=== PATIENT | male | born 2005 | race Caucasian/White ===

== ENCOUNTER 2024-08-26 01:33 | Emergency (ER) | payer OTHER ==
[~2024-08-26] VITALS: Ht 180.3 cm; Wt 76.5 kg
[2024-08-26 03:13] LABS: BLOOD UREA NITROGEN 14 MG/DL (9-23); CALCIUM LEVEL 8.7 MG/DL (8.5-10.1); CARBON DIOXIDE LEVEL 27 MMOL/L (20-31); CHLORIDE LEVEL 105 MMOL/L (98-107); CREATININE FOR GFR 0.89 MG/DL (0.70-1.30); GLUCOSE, FASTING 100 MG/DL (60-100); POTASSIUM SERUM 3.9 MMOL/L (3.5-5.1); SODIUM LEVEL 142 MMOL/L (136-145)
[2024-08-26 05:15] VITALS: BP 143/77; TEMP 98.4
[2024-08-26 05:18] VITALS: O2SAT 99
== END 2024-08-26 05:50 | disposition home or self-care (01) ==
LOC: M ED 01:33
DX: J06.9 Acute upper respiratory infection, unspecified (principal); F45.21 Hypochondriasis; I45.10 Unspecified right bundle-branch block; K21.9 Gastro-esophageal reflux disease without esophagitis; F12.10 Cannabis abuse, uncomplicated; F10.10 Alcohol abuse, uncomplicated; Z88.1 Allergy status to other antibiotic agents

== ENCOUNTER 2024-09-05 19:59 | Emergency (ER) | payer OTHER ==
[~2024-09-05] VITALS: Ht 180.3 cm; Wt 75.7 kg
[2024-09-05 21:12] LABS: BASO % 0.5 % (0.0-1.0); EOS # 0.1 10^3/uL (0.0-0.5); EOS % 1.2 % (0.0-3.0); HEMATOCRIT 49.2 % (42.0-52.0); HEMOGLOBIN 16.7 g/dl (13.5-17.5); LYMPH # 1.6 10^3/uL (1.5-5.0); LYMPH % 27.1 % (24.0-44.0); MEAN CORPUSCULAR HEMOGLOBIN 28.8 pg (27.0-33.0); MEAN CORPUSCULAR HGB CONC 33.9 g/dl (32.0-36.5); MEAN CORPUSCULAR VOLUME 84.8 fl (80.0-96.0); MONO # 0.5 10^3/uL (0.0-0.8); MONO % 9.2 % (2.0-8.0); NEUTROPHILS # 3.6 10^3/uL (1.5-8.5); NEUTROPHILS % 61.8 % (36.0-66.0); PLATELET COUNT, AUTOMATED 206 10^3/uL (150-450); WHITE BLOOD COUNT 5.8 10^3/uL (4.0-10.0)
[2024-09-05 21:30] LABS: CK-MB VALUE MASS < 1.0 NG/ML (<3.6)
[2024-09-05] MEDS: NS (Normal Saline) 0.9% 1,000 ML IV ONE (21:30)
[2024-09-05 21:40] LABS: BLOOD UREA NITROGEN 15 MG/DL (9-23); CALCIUM LEVEL 9.8 MG/DL (8.5-10.1); CARBON DIOXIDE LEVEL 26 MMOL/L (20-31); CHLORIDE LEVEL 106 MMOL/L (98-107); CPK CREATINE PHOSPHOKINASE 83 U/L (46-171); CREATININE FOR GFR 0.87 MG/DL (0.70-1.30); GLUCOSE, FASTING 94 MG/DL (60-100); POTASSIUM SERUM 4.2 MMOL/L (3.5-5.1); SODIUM LEVEL 143 MMOL/L (136-145)
[2024-09-05] MEDS: LORazepam 2 MG/ML 1ML VIAL IV STA (22:39)
[2024-09-05 22:58] LABS: CK-MB VALUE MASS < 1.0 NG/ML (<3.6)
[2024-09-05 23:00] LABS: CPK CREATINE PHOSPHOKINASE 73 U/L (46-171); MB/CK RELATIVE INDEX 1.36 (< OR =4)
[2024-09-05 23:58] VITALS: BP 139/75; TEMP 97.7; O2SAT 97
== END 2024-09-06 00:01 | disposition home or self-care (01) ==
LOC: M ED 19:59
DX: T88.7XXA Unspecified adverse effect of drug or medicament, initial encounter (principal); K21.9 Gastro-esophageal reflux disease without esophagitis; R94.31 Abnormal electrocardiogram [ECG] [EKG]; F12.10 Cannabis abuse, uncomplicated; Z88.1 Allergy status to other antibiotic agents
CPT/HCPCS: 71045; 80048; 82550; 82553; 84484; 85025; 93005; 93041; 94760; 96361; 96374; 99285; J2060